=== PATIENT | male | born 1950 | race Caucasian/White ===

== ENCOUNTER → 2016-11-05 | Outpatient (CLI) | payer OTHER ==
--- NOTE | 2016-11-05 17:19 | DIAGNOSTIC IMAGING REPORT ---
PROCEDURE: XR WRIST 1 OR 2 VIEWS - RIGHT INDICATION: Follow-up right wrist fracture. TECHNIQUE: AP and lateral views. COMPARISON: Right wrist x-ray [facility] 04/21/2016 and 03/24/2016. FINDINGS: Smooth deformity of the distal radius consistent with an old healed fracture with subchondral degenerative cystic change. There is mild positive ulnar variance which may result in impaction injuries. IMPRESSION: 1. Healed right distal radius fracture 2. Positive ulnar variance which may result in impaction injuries
--- NOTE | 2016-11-05 17:19 | DIAGNOSTIC IMAGING REPORT ---
PROCEDURE: XR WRIST 1 OR 2 VIEWS - RIGHT INDICATION: Follow-up right wrist fracture. TECHNIQUE: AP and lateral views. COMPARISON: Right wrist x-ray [facility] 04/21/2016 and 03/24/2016. FINDINGS: Smooth deformity of the distal radius consistent with an old healed fracture with subchondral degenerative cystic change. There is mild positive ulnar variance which may result in impaction injuries. IMPRESSION: 1. Healed right distal radius fracture 2. Positive ulnar variance which may result in impaction injuries
== END ==
LOC: XR SRH 16:27
DX: S52.501D Unspecified fracture of the lower end of right radius, subsequent encounter for closed fracture with routine healing (principal)

== ENCOUNTER 2016-11-10 02:51 | Emergency (ER) | payer OTHER ==
--- NOTE | 2016-11-10 05:05 | ED ORDER SUMMARY ---
..... Patient: KUMAR MUÑIZ OrderSheet [facility] VisitID: [id number] [address] [place] [address] 66y, M Registration Date/Time: 11/10/2016 ORDER SHEET Weight: 87.0 kg Allergies: No Known Drug Allergy GENERAL ORDERS: CT Abd/Pel wo Cont (left sided) Urgent (03:11/10/2016 PHutchinson DO) (Ack 3:23 Ron) (4:28 GUnger) UA-Culture if indicated Urgent (03:11/10/2016 PHutchinson DO) (Ack 3:23 Ron) (4:41 TBowen R.N.) Amylase Urgent (03:11/10/2016 PHson DO) (3:13 TBowen R.N.) Lipase Urgent (03:11/10/2016 PHutchinson DO) (3:13 TBowen R.N.) PT with INR Urgent (03:11/10/2016 PHson DO) (3:13 TBowen R.N.) Cardiac Panel Stat (03:11/10/2016 chinson DO) (3:13 TBowen R.N.) BNP Urgent (03:11/10/2016 PHutchinson DO) (3:13 TBowen R.N.) Urine Drug Screen Urgent (03:11/10/2016 PHutchinson DO) (Ack 3:23 Ron) (4:41 TBowen R.N.) Ethyl Alcohol Urgent (03:11/10/2016 PHchinson DO) (3:13 TBowen R.N.) NPO (03:11/10/2016 PHutchinson DO) (3:13 TBowen R.N.) MEDICATION ORDERS: IV FLUIDS: IV NS : initial bolus 1000 mL (1000 mL/hr), then 250 mL/hr for X4 (NOW) (03:11/10/2016 PHutchinson DO) (3:24 TBowen R.N.) Dilaudid IV 0.5 mg (may repeat x 2 prn pain) (03:08 11/10/2016 [facility]) (3:25 TBowen R.N.) Zofran IV 4 mg (NOW) (03:09 11/10/2016 [facility]) (3:24 TBowen R.N.) Toradol IV 30 mg (NOW) (03:11/10/2016 [facility]) (3:24 TBowen R.N.) ORDER SHEET NOTES: [Electronically signed by Martita Hand R.N. (05:27 11/10/2016)] [Electronically signed by Teddy Farooq DO (05:42 11/10/2016)] [Electronically locked/signed by Martita Hand R.N. (05:11/10/2016)]
--- NOTE | 2016-11-10 05:05 | ED NURSING NOTES ---
Clinical Report - Nurses [place] [address] [place] [address] 11/10/2016 2:53 [id number] TRI[facility] Triage time 03:03. Acuity: LEVEL 3. Chief Complaint: ABDOMINAL PAIN, NAUSEA and VOMITING. --03:12 Colt RManiN. 03:03 11/10/16. BP: 117/59. HR: 68. RR: 18. O2 saturation: 99%. Temp: 97.5 F. Pain level now: 03/14. --03:12 Colt R.N. Weight: 87 kg. Height/Length: 68 inches. BMI: 29.2. --03:06 Colt R.N. Medications None. --03:05 Colt RManiN. Allergies No Known Drug Allergy. --03:04 Colt RManiN. History Arrived by private vehicle. Historian: patient. Accompanied by family. ( pt states abd started yesterday, pt complains of nausea and vomiting). This started yesterday. Treatment MANAGER DEMAND: None. PAST MEDICAL HX: Immunizations: up-to-date. SOCIAL HX: Heavy tobacco smoker- less than 1 pack per day. No alcohol use or drug use. No recent travel. No infectious disease exposure. No known contact with a sick individual. SELF HARM ASSESSMENT: A self harm assessment was performed. The patient answered "no" to the question "Have you recently felt down, depressed, or hopeless?", "Have you noticed less interest or pleasure in doing things?", "Do you have thoughts of harming or killing yourself?", "Are you here because you tried to hurt yourself?", "Have you ever tried to hurt yourself before today?", "Have you recently had thoughts about harming or killing others?" and "Do you have any dangerous items in your possession?". FALL RISK ASSESSMENT: Fall risk assessment completed. No fall risk identified. NUTRITIONAL RISK ASSESSMENT: The nutritional risk assessment revealed no deficiencies. FUNCTIONAL ASSESSMENT: Functional assessment: no impairments noted. LEARNING NEEDS ASSESSMENT: The learning needs assessment revealed no barriers. SKIN INTEGRITY ASSESSMENT: Skin integrity risk assessment completed. No skin integrity risk identified. --03:12 Du Gregory PROBLEMS: Asthma. --03:05 Du Gregory COPD - Chronic Obstructive Pulmonary Disease. --03: Du Gregory ADDITIONAL SURGERIES: Pelvis. Shoulder Surgery. --03:04 Du Gregory Interventions ID band on patient. To treatment room. --03:12 Du Gregory PHYSICAL ASSESSMENT Ambulatory to room. GENERAL / NEURO / PSYCH: Alert. Oriented X 4. Appears in no acute distress. HEENT: Mucous membranes are pink. RESPIRATORY: Respirations not labored. Breath sounds within normal limits. CVS: Normal sinus rhythm noted. Capillary refill less than 2 seconds. GI / : Abdomen soft. Guarding present. Bowel sounds within normal limits. SKIN: Skin is warm and dry. --03: Du Gregory NURSING PROGRESS NOTES Patient gowned. Two patient identifiers checked. Call light placed in reach. Side rails up x 2. Bed placed in lowest position. Brakes of bed on. --: Du Gregory 03:11/10/2016 Site #1 started via IV in the left antecubital space with an 20g angiocath, with aseptic technique and good blood return; one attempt. Blood drawn: rainbow set. Labeled in the presence of the patient and sent to the lab. Saline lock flushed with saline. --: Du Gregory 03:11/10/2016 Started bag #1 1000 mL IV Fluids IV NS (Saline); at 1000 mL/hr over 1 hour(s) via site #1 via dial-a-flow. Allergies verified and confirmed 5 rights. IV patency established. IV site checked: no pain, redness, or swelling. IV flushed thoroughly pre- and post-medication administration. --:24 Du Gregory 03:24 11/10/2016 Zofran (Ondansetron HCl) IVP 4 mg given over 1 minute(s) via site #1. Allergies verified and confirmed 5 rights. IV patency established. IV site checked: no pain, redness, or swelling. IV flushed thoroughly pre- and post-medication administration. IVP given by RN. --03:24 uD Gregory 03:24 11/10/2016 Toradol IVP 30 mg given over 1 minute(s) via site #1. Allergies verified and confirmed 5 rights. IV patency established. IV site checked: no pain, redness, or swelling. IV flushed thoroughly pre- and post-medication administration. IVP given by RN. --03:24 Du Gregory 03:25 11/10/2016 Dilaudid (HYDROmorphone HCl PF) IVP 0.5 mg given over 1 minute(s) via site #1. Allergies verified, confirmed 5 rights and sedative warning given to the patient and patient's family. IV patency established. IV site checked: no pain, redness, or swelling. IV flushed thoroughly pre- and post-medication administration. IVP given by RN. --03: Du Gregory Reassessment after medication administered. He is sleeping. --04:00 Du Gregory 04:00 11/10/2016 IV Fluids IV NS Discontinued: bag #1 completed. Total amount infused: 1000 mL. IV patency established. IV site checked: no pain, redness, or swelling. IV flushed thoroughly. --04:00 Du Gregory 04:01 11/10/2016 Started bag #2 1000 mL IV Fluids IV NS (Saline); at 250 mL/hr over 4 hour(s) via site #1 via IV pump. Allergies verified and confirmed 5 rights. IV patency established. IV site checked: no pain, redness, or swelling. IV flushed thoroughly pre- and post-medication administration. --04:01 Du Gregory 05:27 11/10/2016 IV Fluids IV NS Discontinued: bag #2 STOPPED upon discharge. Total amount infused: 500 mL. IV patency established. IV site checked: no pain, redness, or swelling. IV flushed thoroughly. --05:27 Du Gregory DISPOSITION / DISCHARGE Departure time: 05:25. Condition at departure: improved. No learning barriers present. Discharge instructions provided and reviewed with the patient. Reviewed medication(s) side effects, precautions, dosing and course information. Prescription(s) given to the patient. Reviewed referral to a surgeon and primary care physician for followup. Work note given. Patient verbalized understanding. Written instructions provided in [facility]. No warning instructions, treatment instructions, diet instructions, activity restrictions or follow up contact number given. No stop smoking instructions. The patient was discharged by the physician. He was discharged home and accompanied by family. He left the Emergency Department ambulatory and via private vehicle. Family member driving. FALL RISK ASSESSMENT: Fall risk assessment completed. No fall risk identified. --05:25 Du Gregory 05:24 11/10/16. BP: 118/62. HR: 71. RR: 16. O2 saturation: 99%. Temp: deferred. Pain level now: 0/10. --05:25 Du Gregory 05:26 11/10/2016 Site #1 removed upon discharge. Catheter intact. Bandaid applied. --05:26 Du Gregory Locked/Released at 11/10/2016 5:27 by Du Gregory
--- NOTE | 2016-11-10 05:05 | ED CLINICAL REPORT ---
Clinical Report - Physicians/Mid Levels [facility] [address] [place] [address] 11/10/2016 2:53 Patient: KUMAR MUÑIZ Time Seen: 03:02. Arrived- By private vehicle. Historian- patient. HISTORY OF PRESENT ILLNESS Chief Complaint: FLANK PAIN. This started yesterday and is still present. It was gradual in onset and has been waxing/waning. At its maximum, severity described as severe. When seen in the E.D., severity described as severe. Modifying factors. Not worsened by anything. Not relieved by anything. It is described as "pain" and sharp. It is described as located in the left abdomen, left lower quadrant and left pelvis and the left flank and radiating to the left lower quadrant of the abdomen. The patient has had nausea. No vomiting or diarrhea. Similar symptoms previously: None. Recent medical care: Not recently seen/assessed. REVIEW OF SYSTEMS No constipation, black stools, hematemesis, difficulty with urination or pain with urination. No bloody stools, fever, headache, sore throat or chest pain. No difficulty breathing, cough or skin rash. The patient has had urinary frequency. The patient has had mid back pain. No pain radiating below the knee. All systems otherwise negative, except as recorded above. PAST HISTORY See nurses notes. PCP: Dr Combs. No history of peptic ulcer. No history of gallstones or bowel obstruction. Has not had urinary calculi. Mild asthma. Mild chronic obstructive pulmonary disease. Surgeries: Shoulder surgery. (Pelvic surgery). Medications: None. Allergies: No Known Drug Allergy. SOCIAL HISTORY Smoker- current status unknown. Occasional alcohol use. No drug use. Residence: [place]. ADDITIONAL NOTES The nursing notes have been reviewed. PHYSICAL EXAM Vital Signs: 11/10/2016 03:03 BP: 117/59. HR: 68. RR: 18. O2 saturation: 99%. Temp: 97.5 F. Pain level now: 9/10. Appearance: Alert. Oriented X3. Patient in moderate distress. Eyes: Eyes normal inspection. No scleral icterus or pale conjunctivae. ENT: Pharynx normal. No pharyngeal erythema or tonsillar exudate. The mucous membranes are not dry. Neck: Normal inspection. Neck supple. CVS: Normal heart rate and rhythm. Heart sounds normal. Pulses normal. Respiratory: No respiratory distress. Breath sounds normal. No decreased air movement, rales, rhonchi or wheezes. Abdomen: Soft. Mild tenderness in the left lower quadrant. No mass. Femoral pulses equal. No rebound tenderness or guarding. Back: Normal inspection. Mild CVA tenderness on the left. : Normal genitalia. Testes descended. No scrotal swelling. Skin: Skin warm and dry. Normal skin color. No rash. Normal skin turgor. Extremities: Extremities exhibit normal ROM. No calf tenderness. No lower extremity edema. Neuro: Oriented X 3. No motor deficit. LABS, X-RAYS, AND EKG Abdominal CT: 2 mm mildly obstructing stone in let UVJ. Isodense cyst or mass in Left midpole kidney. 4.8cm AAA, incompletely evaluated. Study type: abdomen and pelvis. Abdominal CT performed without contrast. The study was independently viewed by me, interpreted by the radiologist and discussed with the radiologist. Laboratory Tests: UA-Culture if indicated: (DONNA: 11/10/2016 04:40) ( MsgRcvd 11/10/2016 04:55) Final results Test Result Flag Units (Reference) URINE COLOR YELLOW URINE APPEARANCE CLEAR URINE GLUCOSE NEGATIVE (NEGATIVE) URINE BILIRUBIN NEGATIVE (NEGATIVE) URINE KETONE TRACE (NEGATIVE) URINE SPECIFIC GRAVITY 1.010 (1.010-1.030) URINE PH 6.5 (5.0-8.0) URINE PROTEIN NEGATIVE (NEGATIVE) URINE UROBILINOGEN 0.2 EU/dL (0.2-1.0) URINE NITRITE NEGATIVE (NEGATIVE) URINE BLOOD 3+ (NEGATIVE) URINE LEUK ESTERASE NEGATIVE (NEGATIVE) URINE RBC 25-50 rbc/hpf (0-1) URINE WBC 1-3 wbc/hpf (0-1) URINE EPITHELIAL CELLS RARE EPI/hpf (0-5) URINE BACTERIA TRACE (<1+) (NONE SEEN) URINE COMMENT CULT NOT INDICATED 5-10 HYALINE CASTURINE CULTURES ARE SET-UP BASED ON THE FOLLOWING CRITERIA:POSITIVE NITRITEPOSITIVE LEUKOCYTE ESTERASEGREATER THAN 10 WHITE BLOOD CELLSMODERATE (2+) OR GREATER BACTERIA CBC w Diff: (DONNA: 11/10/2016 03:10) ( [facility] 11/10/2016 03:23) Final results Test Result Flag Units (Reference) WHITE BLOOD COUNT 15.1 H K/uL (4.5-11.5) RED BLOOD COUNT 4.72 M/uL (4.50-5.90) HEMOGLOBIN 14.9 gm/dL (13.5-17.5) HEMATOCRIT 43.4 % (41.0-53.0) MEAN CELL VOLUME 92 fL (80-100) MEAN CORPUSCULAR HGB 32 pg (26-34) MEAN CORPUSCULAR HGB CONC 34 g/dL (31-37) RED CELL DISTRIBUTION WIDTH 12.8 % (11.6-14.8) PLATELET COUNT 225 K/uL (150-400) NEUTROPHIL % 84.3 H % (50-75) LYMPH % 8.7 L % (25-40) MONO % 6.3 % (3-14) EOSINOPHIL % 0.3 % (0-4) BASOPHIL % 0.4 % (0-2) PT with INR: (DONNA: 11/10/2016 03:10) ( [facility] 11/10/2016 03:29) Final results Test Result Flag Units (Reference) INR 0.8 (0.8-1.2) Low Intensity Therapy: INR 1.5-2.0 PT range 18.5-23.1Mod.Intensity Therapy: INR 2.0-3.0 PT range 23.1-31.5High Intensity Therapy: INR 2.5-3.5 PT range 27.4-35.5High Intensity Therapy 2: INR 3.0-4.0 PT range 31.5-39.3 Urine Drug Screen: (DONNA: 11/10/2016 04:40) ( [facility] 11/10/2016 05:08) Final results Test Result Flag Units (Reference) AMPHETAMINE/METHAMPHETAMINE NEGATIVE (NEGATIVE) BARBITURATE NEGATIVE (NEGATIVE) BENZODIAZEPINE NEGATIVE (NEGATIVE) CANNABINOID NEGATIVE (NEGATIVE) COCAINE NEGATIVE (NEGATIVE) ECSTASY NEGATIVE (NEGATIVE) METHADONE NEGATIVE (NEGATIVE) OPIATE POSITIVE H (NEGATIVE) The urine drug screen is a qualitative screening test fordrug overdose and abuse. All screen results should beconsidered as presumptive.Drugs screened for are as follows:BenzodiazepinesCocaineAmphetamines/MetamphetaminesTHC (Tetrahydrocannabinol)OpiatesBarbituratesEcstasyMethadonePositive results are unconfirmed. For confirmation, notifythe lab for the specimen to be sent to the reference lab.All confirmations must be performed by a differentmethodology.The ingestion of natural herbal and plant productscontaining Ephedra/Ephedra metabolites can produce in urineone or more substances capable of cross reacting withamphetamine/methamphetamine immunoassays. These testsprovide a preliminary result only. A more specificalternative chemical method must be used to obtain aconfirmed analytical result. BNP: (DONNA: 11/10/2016 03:10) ( [facility] 11/10/2016 03:50) Final results Test Result Flag Units (Reference) B-TYPE NATRIURETIC PEPTIDE 20.7 pg/ml (5-100) CHEM 13 PANEL: (DONNA: 11/10/2016 03:10) ( [facility] 11/10/2016 03:37) Final results Test Result Flag Units (Reference) GLUCOSE 128 H mg/dL (70-110) BUN 15 mg/dL (7-18) CREATININE 1.4 H mg/dL (0.6-1.3) Estimated GFR 53.72 mL/min Estimated GFR- >60 mL/min Note: Persistent reduction over 3 months in eGFR<60 mL/min/1.73 m2 defines CKD. Patients with eGFR values>=60 mL/min/1.73 m2 may also have CKD if evidence ofpersistent proteinuria. Additional information may be foundat www.kidney.org. SODIUM 144 mmol/L (136-145) POTASSIUM 4.0 mmol/L (3.5-5.1) CHLORIDE 107 mmol/L (98-107) CARBON DIOXIDE 25 mmol/L (21-32) CALCIUM 9.5 mg/dL (8.5-10.1) TOTAL PROTEIN 7.7 g/dL (6.4-8.2) ALBUMIN 3.8 g/dL (3.3-5.0) BILIRUBIN, TOTAL 0.3 mg/dL (0.0-1.0) ALKALINE PHOSPHATASE 94 U/L (46-116) AST (SGOT) 23 U/L (15-37) ALT (SGPT) 30 U/L (12-78) CPK 93 U/L (24-260) MAGNESIUM 2.1 mg/dL (1.8-2.4) LIPASE 223 U/L (73-393) AMYLASE 44 U/L (25-115) TROPONIN I <0.05 ng/mL (0.00-1.5) TROPONIN REFERENCE RANGE:<0.1 NEGATIVE0.1-1.5 INDETERMINANT>1.5 POSITIVE ETHYL ALCOHOL <3 L mg/dL (3-10) . Pulse Oximetry: 11/10/2016 03:03 O2 saturation: 99%. (FIO2 - room air). Interpretation: normal. PROGRESS AND PROCEDURES Course of Care: Normal Saline 1 liter IVPB given. Toradol 30 mg IVP given. Zofran 4 mg IVP given. Dilaudid 0.5 mg IVP given. All c/w left ureterolithiasis which he has passed. Pt has incidentally noted AAA and likely renal cyst - he is informed of the need for close out pt follow up and further work up Patient is stable. The patient's symptoms are now gone. Physical exam findings are improved. 11/10/2016 05:24 BP: 118/62. HR: 71. RR: 16. O2 saturation: 99%. Pain level now: 0/10. Patient/family counseled. Disposition: Discharged. Condition: stable and improved. CLINICAL IMPRESSION Asymptomatic abdominal aortic aneurysm. No dissection, rupture, hypotension or shock. Ureterolithiasis (single stone) in the left ureter with renal colic and hydronephrosis. No acute pyelonephritis. Kidney cyst or mass. INSTRUCTIONS Do not work for three days. Drink plenty of fluids. Do not smoke. Seek medical help to quit smoking. Warnings: Further evaluation is necessary. It is very important to follow up with a physician. SEDATIVE MEDICATION: You were given sedative medication during your visit. Do not drive or operate dangerous machinery. CONTROLLED SUBSTANCE WARNINGS. GENERAL WARNINGS: Return or contact your physician immediately if your condition worsens or changes unexpectedly, if not improving as expected, or if other problems arise. Prescription Medications: Hydrocodone/APAP 5mg / 325mg: take 1-2 orally every 6 hours as needed for pain. Dispense ten (10). No refill. Zofran (orally disintegrating tablets) 4 mg: take 1-2 orally every 8 hours as needed for nausea. Dispense five (5). No refill. Follow-up: Follow up with a urologist- as recommended by your primary care physician. Follow-up with: Singh Combs MD, [facility], [phone], [facility], [address] [place] [address] [id number] Follow up tomorrow. Follow-up with: eTddy Espinal MD, General Surgeon, , [facility], [address] [place] [address] [id number] Follow up in about two days. (Electronically signed by Teddy Farooq DO 11/10/2016 5:42)
--- NOTE | 2016-11-10 05:05 | ED NURSING NOTES ---
Clinical Report - Nurses [place] [address] [place] [address] 11/10/2016 2:53 [id number] TRI[facility] Triage time 03:03. Acuity: LEVEL 3. Chief Complaint: ABDOMINAL PAIN, NAUSEA and VOMITING. --03:12 Colt RManiN. 03:03 11/10/16. BP: 117/59. HR: 68. RR: 18. O2 saturation: 99%. Temp: 97.5 F. Pain level now: 03/14. --03:12 Colt R.N. Weight: 87 kg. Height/Length: 68 inches. BMI: 29.2. --03:06 Colt R.N. Medications None. --03:05 Colt RManiN. Allergies No Known Drug Allergy. --03:04 Colt RManiN. History Arrived by private vehicle. Historian: patient. Accompanied by family. ( pt states abd started yesterday, pt complains of nausea and vomiting). This started yesterday. Treatment LABOR RELATIONS OR PERSONNEL NEGOTIATOR: None. PAST MEDICAL HX: Immunizations: up-to-date. SOCIAL HX: Heavy tobacco smoker- less than 1 pack per day. No alcohol use or drug use. No recent travel. No infectious disease exposure. No known contact with a sick individual. SELF HARM ASSESSMENT: A self harm assessment was performed. The patient answered "no" to the question "Have you recently felt down, depressed, or hopeless?", "Have you noticed less interest or pleasure in doing things?", "Do you have thoughts of harming or killing yourself?", "Are you here because you tried to hurt yourself?", "Have you ever tried to hurt yourself before today?", "Have you recently had thoughts about harming or killing others?" and "Do you have any dangerous items in your possession?". FALL RISK ASSESSMENT: Fall risk assessment completed. No fall risk identified. NUTRITIONAL RISK ASSESSMENT: The nutritional risk assessment revealed no deficiencies. FUNCTIONAL ASSESSMENT: Functional assessment: no impairments noted. LEARNING NEEDS ASSESSMENT: The learning needs assessment revealed no barriers. SKIN INTEGRITY ASSESSMENT: Skin integrity risk assessment completed. No skin integrity risk identified. --03:12 Du Gregory PROBLEMS: Asthma. --03:05 Du Gregory COPD - Chronic Obstructive Pulmonary Disease. --03: Du Gregory ADDITIONAL SURGERIES: Pelvis. Shoulder Surgery. --03:04 Du Gregory Interventions ID band on patient. To treatment room. --03:12 Du Gregory PHYSICAL ASSESSMENT Ambulatory to room. GENERAL / NEURO / PSYCH: Alert. Oriented X 4. Appears in no acute distress. HEENT: Mucous membranes are pink. RESPIRATORY: Respirations not labored. Breath sounds within normal limits. CVS: Normal sinus rhythm noted. Capillary refill less than 2 seconds. GI / : Abdomen soft. Guarding present. Bowel sounds within normal limits. SKIN: Skin is warm and dry. --03: Du Gregory NURSING PROGRESS NOTES Patient gowned. Two patient identifiers checked. Call light placed in reach. Side rails up x 2. Bed placed in lowest position. Brakes of bed on. --: Du Gregory 03:11/10/2016 Site #1 started via IV in the left antecubital space with an 20g angiocath, with aseptic technique and good blood return; one attempt. Blood drawn: rainbow set. Labeled in the presence of the patient and sent to the lab. Saline lock flushed with saline. --: Du Gregory 03:11/10/2016 Started bag #1 1000 mL IV Fluids IV NS (Saline); at 1000 mL/hr over 1 hour(s) via site #1 via dial-a-flow. Allergies verified and confirmed 5 rights. IV patency established. IV site checked: no pain, redness, or swelling. IV flushed thoroughly pre- and post-medication administration. --:24 Du Gregory 03:24 11/10/2016 Zofran (Ondansetron HCl) IVP 4 mg given over 1 minute(s) via site #1. Allergies verified and confirmed 5 rights. IV patency established. IV site checked: no pain, redness, or swelling. IV flushed thoroughly pre- and post-medication administration. IVP given by RN. --03:24 Du Gregory 03:24 11/10/2016 Toradol IVP 30 mg given over 1 minute(s) via site #1. Allergies verified and confirmed 5 rights. IV patency established. IV site checked: no pain, redness, or swelling. IV flushed thoroughly pre- and post-medication administration. IVP given by RN. --03:24 Du Gregory 03:25 11/10/2016 Dilaudid (HYDROmorphone HCl PF) IVP 0.5 mg given over 1 minute(s) via site #1. Allergies verified, confirmed 5 rights and sedative warning given to the patient and patient's family. IV patency established. IV site checked: no pain, redness, or swelling. IV flushed thoroughly pre- and post-medication administration. IVP given by RN. --03: Du Gregory Reassessment after medication administered. He is sleeping. --04:00 Du Gregory 04:00 11/10/2016 IV Fluids IV NS Discontinued: bag #1 completed. Total amount infused: 1000 mL. IV patency established. IV site checked: no pain, redness, or swelling. IV flushed thoroughly. --04:00 Du Gregory 04:01 11/10/2016 Started bag #2 1000 mL IV Fluids IV NS (Saline); at 250 mL/hr over 4 hour(s) via site #1 via IV pump. Allergies verified and confirmed 5 rights. IV patency established. IV site checked: no pain, redness, or swelling. IV flushed thoroughly pre- and post-medication administration. --04:01 Du Gregory 05:27 11/10/2016 IV Fluids IV NS Discontinued: bag #2 STOPPED upon discharge. Total amount infused: 500 mL. IV patency established. IV site checked: no pain, redness, or swelling. IV flushed thoroughly. --05:27 Du Gregory DISPOSITION / DISCHARGE Departure time: 05:25. Condition at departure: improved. No learning barriers present. Discharge instructions provided and reviewed with the patient. Reviewed medication(s) side effects, precautions, dosing and course information. Prescription(s) given to the patient. Reviewed referral to a surgeon and primary care physician for followup. Work note given. Patient verbalized understanding. Written instructions provided in Ghanaian. No warning instructions, treatment instructions, diet instructions, activity restrictions or follow up contact number given. No stop smoking instructions. The patient was discharged by the physician. He was discharged home and accompanied by family. He left the Emergency Department ambulatory and via private vehicle. Family member driving. FALL RISK ASSESSMENT: Fall risk assessment completed. No fall risk identified. --05:25 Du Gregory 05:24 11/10/16. BP: 118/62. HR: 71. RR: 16. O2 saturation: 99%. Temp: deferred. Pain level now: 0/10. --05:25 Du Gregory 05:26 11/10/2016 Site #1 removed upon discharge. Catheter intact. Bandaid applied. --05:26 Du Gregory Locked/Released at 11/10/2016 5:27 by Du Gregory
--- NOTE | 2016-11-10 05:05 | ED ORDER SUMMARY ---
..... Patient: KUMAR MUÑIZ OrderSheet VisitID: [id number] [address] [place] [address] 66y, M Registration Date/Time: 11/10/2016 ORDER SHEET Weight: 87.0 kg Allergies: No Known Drug Allergy GENERAL ORDERS: CT Abd/Pel wo Cont (left sided) Urgent (03:11/10/2016 PHutchinson DO) (Ack 3:23 Ron) (4:28 GUnger) UA-Culture if indicated Urgent (03:11/10/2016 PHutchinson DO) (Ack 3:23 Ron) (4:41 TBowen R.N.) Amylase Urgent (03:11/10/2016 PHson DO) (3:13 TBowen R.N.) Lipase Urgent (03:11/10/2016 PHutchinson DO) (3:13 TBowen R.N.) PT with INR Urgent (03:11/10/2016 PHson DO) (3:13 TBowen R.N.) Cardiac Panel Stat (03:11/10/2016 chinson DO) (3:13 TBowen R.N.) BNP Urgent (03:11/10/2016 PHutchinson DO) (3:13 TBowen R.N.) Urine Drug Screen Urgent (03:11/10/2016 PHutchinson DO) (Ack 3:23 Ron) (4:41 TBowen R.N.) Ethyl Alcohol Urgent (03:11/10/2016 PHchinson DO) (3:13 TBowen R.N.) NPO (03:11/10/2016 PHutchinson DO) (3:13 TBowen R.N.) MEDICATION ORDERS: IV FLUIDS: IV NS : initial bolus 1000 mL (1000 mL/hr), then 250 mL/hr for X4 (NOW) (03:11/10/2016 PHutchinson DO) (3:24 TBowen R.N.) Dilaudid IV 0.5 mg (may repeat x 2 prn pain) (03:08 11/10/2016 [facility]) (3:25 TBowen R.N.) Zofran IV 4 mg (NOW) (03:09 11/10/2016 [facility]) (3:24 TBowen R.N.) Toradol IV 30 mg (NOW) (03:11/10/2016 [facility]) (3:24 TBowen R.N.) ORDER SHEET NOTES: [Electronically signed by Martita Hand R.N. (05:27 11/10/2016)] [Electronically signed by Teddy Farooq DO (05:42 11/10/2016)] [Electronically locked/signed by Martita Hand R.N. (05:11/10/2016)]
--- NOTE | 2016-11-10 05:05 | ED CLINICAL REPORT ---
Clinical Report - Physicians/Mid Levels [facility] [address] [place] [address] 11/10/2016 2:53 Patient: KUMAR MUÑIZ Time Seen: 03:02. Arrived- By private vehicle. Historian- patient. HISTORY OF PRESENT ILLNESS Chief Complaint: FLANK PAIN. This started yesterday and is still present. It was gradual in onset and has been waxing/waning. At its maximum, severity described as severe. When seen in the E.D., severity described as severe. Modifying factors. Not worsened by anything. Not relieved by anything. It is described as "pain" and sharp. It is described as located in the left abdomen, left lower quadrant and left pelvis and the left flank and radiating to the left lower quadrant of the abdomen. The patient has had nausea. No vomiting or diarrhea. Similar symptoms previously: None. Recent medical care: Not recently seen/assessed. REVIEW OF SYSTEMS No constipation, black stools, hematemesis, difficulty with urination or pain with urination. No bloody stools, fever, headache, sore throat or chest pain. No difficulty breathing, cough or skin rash. The patient has had urinary frequency. The patient has had mid back pain. No pain radiating below the knee. All systems otherwise negative, except as recorded above. PAST HISTORY See nurses notes. PCP: Dr Combs. No history of peptic ulcer. No history of gallstones or bowel obstruction. Has not had urinary calculi. Mild asthma. Mild chronic obstructive pulmonary disease. Surgeries: Shoulder surgery. (Pelvic surgery). Medications: None. Allergies: No Known Drug Allergy. SOCIAL HISTORY Smoker- current status unknown. Occasional alcohol use. No drug use. Residence: [place]. ADDITIONAL NOTES The nursing notes have been reviewed. PHYSICAL EXAM Vital Signs: 11/10/2016 03:03 BP: 117/59. HR: 68. RR: 18. O2 saturation: 99%. Temp: 97.5 F. Pain level now: 9/10. Appearance: Alert. Oriented X3. Patient in moderate distress. Eyes: Eyes normal inspection. No scleral icterus or pale conjunctivae. ENT: Pharynx normal. No pharyngeal erythema or tonsillar exudate. The mucous membranes are not dry. Neck: Normal inspection. Neck supple. CVS: Normal heart rate and rhythm. Heart sounds normal. Pulses normal. Respiratory: No respiratory distress. Breath sounds normal. No decreased air movement, rales, rhonchi or wheezes. Abdomen: Soft. Mild tenderness in the left lower quadrant. No mass. Femoral pulses equal. No rebound tenderness or guarding. Back: Normal inspection. Mild CVA tenderness on the left. : Normal genitalia. Testes descended. No scrotal swelling. Skin: Skin warm and dry. Normal skin color. No rash. Normal skin turgor. Extremities: Extremities exhibit normal ROM. No calf tenderness. No lower extremity edema. Neuro: Oriented X 3. No motor deficit. LABS, X-RAYS, AND EKG Abdominal CT: 2 mm mildly obstructing stone in let UVJ. Isodense cyst or mass in Left midpole kidney. 4.8cm AAA, incompletely evaluated. Study type: abdomen and pelvis. Abdominal CT performed without contrast. The study was independently viewed by me, interpreted by the radiologist and discussed with the radiologist. Laboratory Tests: UA-Culture if indicated: (DONNA: 11/10/2016 04:40) ( MsgRcvd 11/10/2016 04:55) Final results Test Result Flag Units (Reference) URINE COLOR YELLOW URINE APPEARANCE CLEAR URINE GLUCOSE NEGATIVE (NEGATIVE) URINE BILIRUBIN NEGATIVE (NEGATIVE) URINE KETONE TRACE (NEGATIVE) URINE SPECIFIC GRAVITY 1.010 (1.010-1.030) URINE PH 6.5 (5.0-8.0) URINE PROTEIN NEGATIVE (NEGATIVE) URINE UROBILINOGEN 0.2 EU/dL (0.2-1.0) URINE NITRITE NEGATIVE (NEGATIVE) URINE BLOOD 3+ (NEGATIVE) URINE LEUK ESTERASE NEGATIVE (NEGATIVE) URINE RBC 25-50 rbc/hpf (0-1) URINE WBC 1-3 wbc/hpf (0-1) URINE EPITHELIAL CELLS RARE EPI/hpf (0-5) URINE BACTERIA TRACE (<1+) (NONE SEEN) URINE COMMENT CULT NOT INDICATED 5-10 HYALINE CASTURINE CULTURES ARE SET-UP BASED ON THE FOLLOWING CRITERIA:POSITIVE NITRITEPOSITIVE LEUKOCYTE ESTERASEGREATER THAN 10 WHITE BLOOD CELLSMODERATE (2+) OR GREATER BACTERIA CBC w Diff: (DONNA: 11/10/2016 03:10) ( [facility] 11/10/2016 03:23) Final results Test Result Flag Units (Reference) WHITE BLOOD COUNT 15.1 H K/uL (4.5-11.5) RED BLOOD COUNT 4.72 M/uL (4.50-5.90) HEMOGLOBIN 14.9 gm/dL (13.5-17.5) HEMATOCRIT 43.4 % (41.0-53.0) MEAN CELL VOLUME 92 fL (80-100) MEAN CORPUSCULAR HGB 32 pg (26-34) MEAN CORPUSCULAR HGB CONC 34 g/dL (31-37) RED CELL DISTRIBUTION WIDTH 12.8 % (11.6-14.8) PLATELET COUNT 225 K/uL (150-400) NEUTROPHIL % 84.3 H % (50-75) LYMPH % 8.7 L % (25-40) MONO % 6.3 % (3-14) EOSINOPHIL % 0.3 % (0-4) BASOPHIL % 0.4 % (0-2) PT with INR: (DONNA: 11/10/2016 03:10) ( [facility] 11/10/2016 03:29) Final results Test Result Flag Units (Reference) INR 0.8 (0.8-1.2) Low Intensity Therapy: INR 1.5-2.0 PT range 18.5-23.1Mod.Intensity Therapy: INR 2.0-3.0 PT range 23.1-31.5High Intensity Therapy: INR 2.5-3.5 PT range 27.4-35.5High Intensity Therapy 2: INR 3.0-4.0 PT range 31.5-39.3 Urine Drug Screen: (DONNA: 11/10/2016 04:40) ( [facility] 11/10/2016 05:08) Final results Test Result Flag Units (Reference) AMPHETAMINE/METHAMPHETAMINE NEGATIVE (NEGATIVE) BARBITURATE NEGATIVE (NEGATIVE) BENZODIAZEPINE NEGATIVE (NEGATIVE) CANNABINOID NEGATIVE (NEGATIVE) COCAINE NEGATIVE (NEGATIVE) ECSTASY NEGATIVE (NEGATIVE) METHADONE NEGATIVE (NEGATIVE) OPIATE POSITIVE H (NEGATIVE) The urine drug screen is a qualitative screening test fordrug overdose and abuse. All screen results should beconsidered as presumptive.Drugs screened for are as follows:BenzodiazepinesCocaineAmphetamines/MetamphetaminesTHC (Tetrahydrocannabinol)OpiatesBarbituratesEcstasyMethadonePositive results are unconfirmed. For confirmation, notifythe lab for the specimen to be sent to the reference lab.All confirmations must be performed by a differentmethodology.The ingestion of natural herbal and plant productscontaining Ephedra/Ephedra metabolites can produce in urineone or more substances capable of cross reacting withamphetamine/methamphetamine immunoassays. These testsprovide a preliminary result only. A more specificalternative chemical method must be used to obtain aconfirmed analytical result. BNP: (DONNA: 11/10/2016 03:10) ( [facility] 11/10/2016 03:50) Final results Test Result Flag Units (Reference) B-TYPE NATRIURETIC PEPTIDE 20.7 pg/ml (5-100) CHEM 13 PANEL: (DONNA: 11/10/2016 03:10) ( [facility] [place]10[facility] 03:37) Final results Test Result Flag Units (Reference) GLUCOSE 128 H mg/dL (70-110) BUN 15 mg/dL (7-18) CREATININE 1.4 H mg/dL (0.6-1.3) Estimated GFR 53.72 mL/min Estimated GFR- >60 mL/min Note: Persistent reduction over 3 months in eGFR<60 mL/min/1.73 m2 defines CKD. Patients with eGFR values>=60 mL/min/1.73 m2 may also have CKD if evidence ofpersistent proteinuria. Additional information may be foundat www.kidney.org. SODIUM 144 mmol/L (136-145) POTASSIUM 4.0 mmol/L (3.5-5.1) CHLORIDE 107 mmol/L (98-107) CARBON DIOXIDE 25 mmol/L (21-32) CALCIUM 9.5 mg/dL (8.5-10.1) TOTAL PROTEIN 7.7 g/dL (6.4-8.2) ALBUMIN 3.8 g/dL (3.3-5.0) BILIRUBIN, TOTAL 0.3 mg/dL (0.0-1.0) ALKALINE PHOSPHATASE 94 U/L (46-116) AST (SGOT) 23 U/L (15-37) ALT (SGPT) 30 U/L (12-78) CPK 93 U/L (24-260) MAGNESIUM 2.1 mg/dL (1.8-2.4) LIPASE 223 U/L (73-393) AMYLASE 44 U/L (25-115) TROPONIN I <0.05 ng/mL (0.00-1.5) TROPONIN REFERENCE RANGE:<0.1 NEGATIVE0.1-1.5 INDETERMINANT>1.5 POSITIVE ETHYL ALCOHOL <3 L mg/dL (3-10) . Pulse Oximetry: 11/10/2016 03:03 O2 saturation: 99%. (FIO2 - room air). Interpretation: normal. PROGRESS AND PROCEDURES Course of Care: Normal Saline 1 liter IVPB given. Toradol 30 mg IVP given. Zofran 4 mg IVP given. Dilaudid 0.5 mg IVP given. All c/w left ureterolithiasis which he has passed. Pt has incidentally noted AAA and likely renal cyst - he is informed of the need for close out pt follow up and further work up Patient is stable. The patient's symptoms are now gone. Physical exam findings are improved. 11/10/2016 05:24 BP: 118/62. HR: 71. RR: 16. O2 saturation: 99%. Pain level now: 0/10. Patient/family counseled. Disposition: Discharged. Condition: stable and improved. CLINICAL IMPRESSION Asymptomatic abdominal aortic aneurysm. No dissection, rupture, hypotension or shock. Ureterolithiasis (single stone) in the left ureter with renal colic and hydronephrosis. No acute pyelonephritis. Kidney cyst or mass. INSTRUCTIONS Do not work for three days. Drink plenty of fluids. Do not smoke. Seek medical help to quit smoking. Warnings: Further evaluation is necessary. It is very important to follow up with a physician. SEDATIVE MEDICATION: You were given sedative medication during your visit. Do not drive or operate dangerous machinery. CONTROLLED SUBSTANCE WARNINGS. GENERAL WARNINGS: Return or contact your physician immediately if your condition worsens or changes unexpectedly, if not improving as expected, or if other problems arise. Prescription Medications: Hydrocodone/APAP 5mg / 325mg: take 1-2 orally every 6 hours as needed for pain. Dispense ten (10). No refill. Zofran (orally disintegrating tablets) 4 mg: take 1-2 orally every 8 hours as needed for nausea. Dispense five (5). No refill. Follow-up: Follow up with a urologist- as recommended by your primary care physician. Follow-up with: Singh Combs MD, [facility], [phone], [facility], [address] [place] [address] [id number] Follow up tomorrow. Follow-up with: Teddy Espinal MD, General Surgeon, , [facility], [address] [place] [address] [id number] Follow up in about two days. (Electronically signed by Teddy Farooq DO 11/10/2016 5:42)
--- NOTE | 2016-11-10 05:42 | ED MED RECONCILIATION SUMMARY ---
Patient: KUMAR MUÑIZ Medication Reconciliation Report [facility] VisitID: [id number] [address] [place] [address] 66y, M Registration Date/Time: 11/10/2016 Weight: 87.0 kg Height/Length: 68 in. BMI: 29.2 ALLERGIES: No Known Drug Allergy The patient's Home Medications are listed below: NONE. The source(s) of the original Home Medication information: Not obtained. The following Medications were given to the patient in the Emergency Department: IV NS IV Fluids bolus 0, then 1000 mL/hr, administered: 11/10/2016 3:24:00 AM Zofran [IVP] IVP 4 mg, administered: 11/10/2016 3:24:00 AM Toradol [IVP] IVP 30 mg, administered: 11/10/2016 3:24:00 AM Dilaudid [IVP] IVP 0.5 mg, administered: 11/10/2016 3:25:00 AM IV NS IV Fluids bolus 0, then 250 mL/hr, administered: 11/10/2016 4:01:00 AM The following Medications were prescribed to the patient: Hydrocodone/APAP 5mg / 325mg: take 1-2 orally every 6 hours as needed for pain. Dispense ten (10). No refill. -- Teddy Farooq DO Zofran (orally disintegrating tablets) 4 mg: take 1-2 orally every 8 hours as needed for nausea. Dispense five (5). No refill. -- Teddy Farooq DO
--- NOTE | 2016-11-10 05:42 | ED MAR SUMMARY ---
..... Medication Administration Record Located Within [facility] [address] [place] [address] Patient: KUMAR MUÑIZ Visit ID: [id number] 66y, M Weight: 87.0 kg Height/Length: 68 in BMI: 29.2 ALLERGIES: No Known Drug Allergy Start 03:24 11/10/2016 Gabriel Gregory., Stop 04:00 11/10/2016 Dhiraj GregoryN. Medication Administered: IV NS (SALINE), Dose: IV Fluids over 1 hour(s), Rate: 1000 mL/hr, Dispensed: 1000 mL bag, Site: #1 left AC. Medication Ordered: IV NS : initial bolus 1000 mL (1000 mL/hr), then 250 mL/hr for X4 (NOW). Given 03:11/10/2016 Gabriel Gregory. Medication Administered: ZOFRAN [IVP] (ONDANSETRON HCL), Dose: 4 mg IVP over 1 minute(s), Site: #1 left AC. Medication Ordered: Zofran IV 4 mg (NOW). Given 03:11/10/2016 Dhiraj GregoryN. Medication Administered: TORADOL [IVP], Dose: 30 mg IVP over 1 minute(s), Site: #1 left AC. Medication Ordered: Toradol IV 30 mg (NOW). Given 03:25 11/10/2016 hDiraj GregoryN. Medication Administered: DILAUDID [IVP] (HYDROMORPHONE HCL PF), Dose: 0.5 mg IVP over 1 minute(s), Site: #1 left AC. Medication Ordered: Dilaudid IV 0.5 mg (may repeat x 2 prn pain). Start 04:01 11/10/2016 Gabriel Gregory., Stop 05:27 11/10/2016 Dhiraj GregoryN. Medication Administered: IV NS (SALINE), Dose: IV Fluids over 4 hour(s), Rate: 250 mL/hr, Dispensed: 1000 mL bag, Site: #1 left AC. Medication Ordered: IV NS : initial bolus 1000 mL (1000 mL/hr), then 250 mL/hr for X4 (NOW).
--- NOTE | 2016-11-10 05:42 | ED DISCHARGE INSTRUCTIONS ---
Patient: KUMAR MUÑIZ General Instructions [facility] VisitID: [id number] [place] [address] 66y, M Registration Date/Time: 11/10/2016 Asymptomatic abdominal aortic aneurysm. No dissection, rupture, hypotension or shock. Ureterolithiasis (single stone) in the left ureter with renal colic and hydronephrosis. No acute pyelonephritis. Kidney cyst or mass. INSTRUCTIONS Do not work for three days. Drink plenty of fluids. Do not smoke. Seek medical help to quit smoking. Warnings: Further evaluation is necessary. It is very important to follow up with a physician. SEDATIVE MEDICATION: You were given sedative medication during your visit. Do not drive or operate dangerous machinery. CONTROLLED SUBSTANCE WARNINGS. GENERAL WARNINGS: Return or contact your physician immediately if your condition worsens or changes unexpectedly, if not improving as expected, or if other problems arise. Prescription Medications: Hydrocodone/APAP 5mg / 325mg: take 1-2 orally every 6 hours as needed for pain. Dispense ten (10). No refill. Zofran (orally disintegrating tablets) 4 mg: take 1-2 orally every 8 hours as needed for nausea. Dispense five (5). No refill. Follow-up: Follow up with a urologist- as recommended by your primary care physician. Follow-up with: Singh Combs MD, [facility], [phone], [facility], [address] [place] [address] [address] [address] Follow up tomorrow. Follow-up with: Teddy Espinal MD, General Surgeon, , [facility], [address] [facility] [address], [address] Follow up in about two days. ADDITIONAL INFORMATION Abdominal Aortic Aneurysm (Stable) The aorta is the bodys main artery that carries oxygen-rich blood from the heart. It travels from the heart down to the lower abdomen, where it divides into smaller blood vessels. Certain conditions such as hypertension (high blood pressure), atherosclerosis (hardening of the arteries) and obesity, and certain lifestyles such as smoking and using stimulant drugs (cocaine and amphetamines) can weaken the wall of the aorta. An aneurysm can form in the weakened aortic wall. This appears as a small bulge in the wall of the aorta, which can slowly expand. Because the bulging area is stretched thinner than the normal aortic wall, it can rupture. A rupture of the aorta causes massive internal bleeding and . Most aortic aneurysms do not cause any symptoms until they begin to expand rapidly or rupture. Therefore, most aneurysms are discovered on exams or tests done for other reasons (like an X-ray, ultrasound or CT scan). An expanding aneurysm causes symptoms of abdomen, back, flank or groin pain, which may come and go at first, or become constant. In the case of a ruptured aneurysm, there is sudden abdominal, back or groin pain, followed by weakness, dizziness and loss of consciousness as blood pressure drops and a shock state occurs. This is a fatal condition unless immediate surgery is performed. Small aneurysms rarely rupture and can be safely treated with medicines to lower blood pressure and reduce stress on the aortic wall. Routine ultrasound or CT scans can determine if the aneurysm is growing. Larger aneurysms will require surgery. Surgical treatment involves removing the section of aorta with the aneurysm and replacing it with an aortic graft (artificial blood vessel). A newer alternative to surgery, which can be used in certain cases, involves the placement of a stent (tubular wire mesh) inside the aorta to support the wall and reduce stress on the aneurysm. Rarely, a blood clot can form inside of an aortic aneurysm with no symptoms. A piece of the clot can break off and pass to smaller blood vessels in the intestines or legs and cause pain and loss of blood flow to that part. If a small aneurysm has been identified, which does not require surgery, you should still address any lifestyle factors that may improve your overall cardiovascular health. This includes such things as following a healthy diet, losing weight, stopping smoking, and lowering your cholesterol. Home Care Your aneurysm is small and does not require surgery; you will be followed along as an outpatient with routine ultrasound screening exams to measure the size of the aneurysm every 6 months. You may return to your usual level of activity. Follow these guidelines to improve your cardiac health: If you are overweight, begin a weight loss program. If you have hypertension, reduce your salt intake. -- Avoid high salt foods (olives, pickles, smoked meats, salted potato chips, etc.). -- Do not add salt to your food at the table. -- Use only small amounts of salt when cooking. Begin an exercise program. Discuss with your doctor what type of exercise program would be best for you. It doesn't have to be difficult. Even brisk walking for 20 minutes three times a week is a good form of exercise. Avoid medicines which contain heart stimulants. This includes many cold and sinus decongestant pills and sprays as well as diet pills. Check the warnings about hypertension on the label. Stimulants such as amphetamine or cocaine could be lethal for someone with hypertension. Never take these. Limit your caffeine intake or switch to caffeine-free products. Stop smoking. If you are a long-time smoker, this can be hard. Enroll in a stop-smoking program to improve your chance of success. Learning how to handle stress better is an important part of any program to lower blood pressure. Learn about relaxation methods such as meditation, yoga or biofeedback. If medicines were prescribed for hypertension, take them exactly as directed. Missing doses may cause your blood pressure get out of control. Consider buying an automatic blood pressure machine (available at most pharmacies). Use this to monitor your blood pressure at home and report the results to your doctor. Follow Up: Regular visits to your own physician for blood pressure checks and periodic ultrasounds of the aorta are an important part of your care. Make a follow-up appointment with your doctor, or as directed by our staff. Get Prompt Medical Attention if any of the following occur: -- Sudden severe abdominal, back, flank or groin pain -- Blood in your stools -- Chest pain or shortness of breath -- Generalized weakness, dizziness or fainting -- Local weakness, numbness, pain or coolness of one leg Kidney Stone (W/ Colic) The sharp cramping pain and nausea/vomiting that you have is due to a small stone which has formed in the kidney and is now passing down a narrow tube (ureter) on its way to your bladder. Once it reaches your bladder, the pain will stop. The stone may pass in your urine stream in one piece. [The size may be 1/16" to 1/4" (1-6mm)]. Or, the stone may also break up into maria ines fragments which you may not even notice. Once you have had a kidney stone, you are at risk for developing another one in the future. Home Care: Drink plenty of fluids (at least 8 to 10 glasses of water a day). Most stones will pass on their own, but may take from a few hours to a few days. Sometimes the stone is too large to pass by itself and special methods will have to be used to remove the stone. Each time you urinate, do so in a jar. Pour the urine from the jar through the strainer and into the toilet. Continue doing this until 24 hours after your pain stops. By then, if there was a kidney stone, it should pass from your bladder. Some stones dissolve into sand-like particles and pass right through the strainer. In that case, you wont ever see a stone. Save any stone that you find in the strainer and bring it to your doctor for analysis. It may be possible to prevent certain types of stones from forming. Therefore, it is important to know what kind of stone you have. Try to stay as active as possible since this will help the stone pass. Do not stay in bed unless your pain prevents you from getting up. You may notice a red, pink or brown color to your urine. This is normal while passing a kidney stone. Follow Up with your doctor or return to this facility if the pain lasts more than 48 hours. Get Prompt Medical Attention if any of the following occur: Pain that is not controlled by the medicine given Repeated vomiting or unable to keep down fluids Weakness, dizziness or fainting Fever of 100.4F (38C) or higher, or as directed by your healthcare provider Passage of solid red or brown urine (can't see through it) or urine with lots of blood clots Unable to pass urine for 8 hours and increasing bladder pressure How To Quit Smoking Smoking is one of the hardest habits to break. About half of all those who have ever smoked have been able to quit, and most of those (about 70%) who still smoke want to quit. Here are some of the best ways to stop smoking. Keep Trying: It takes most smokers about 8 tries before they are finally able to fully quit. So, the more often you try and fail, the better your chance of quitting the next time! So, don't give up! Go Cold [place]: Most ex-smokers quit cold turkey. Trying to cut back gradually doesn't seem to work as well, perhaps because it continues the smoking habit. Also, it is possible to fool yourself by inhaling more while smoking fewer cigarettes. This results in the same amount of nicotine in your body! Get Support: Support programs can make an important difference, especially for the heavy smoker. These groups offer lectures, methods to change your behavior and peer support. Call the free national Quitline for more information. 900-OQLS-RXO (640-820-4390). Low-cost or free programs are offered by many hospitals, local chapters of the [place] [employer] (973-364-5564) and the [place] [employer] (594-228-5737). Support at home is important too. Non-smokers can help by offering praise and encouragement. If the smoker fails to quit, encourage them to try again! Yutj-Gir-Tkzslha Medicines: For those who can't quit on their own, Nicotine Replacement Therapy (NRT) may make quitting much easier. Certain aids such as the nicotine patch, gum and lozenge are available without a prescription. However, it is best to use these under the guidance of your doctor. The skin patch provides a steady supply of nicotine to the body. Nicotine gum and lozenge gives temporary bursts of low levels of nicotine. Both methods take the edge off the craving for cigarettes. WARNING: If you feel symptoms of nicotine overdose, such as nausea, vomiting, dizziness, weakness, or fast heartbeat, stop using these and see your doctor. Prescription Medicines: After evaluating your smoking patterns and prior attempts at quitting, your doctor may offer a prescription medicine such as bupropion (Zyban, Wellbutrin), varenicline (Chantix, Champix), a niocotine inhaler or nasal spray. Each has its unique advantage and side effects which your doctor can review with you. Health Benefits Of Quitting: The benefits of quitting start right away and keep improving the longer you go without smokin minutes: blood pressure and pulse return to normal 8 hours: oxygen levels return to normal 2 days: ability to smell and taste begins to improve as damaged nerves start to regrow 2-3 weeks: circulation and lung function improves 1-9 months: decreased cough, congestion and shortness of breath; less tired 1 year: risk of heart attack decreases by half 5 years: risk of lung cancer decreases by half; risk of stroke becomes the same as a non-smoker For information about how to quit smoking, visit the following links: National Cancer [employer] , Clearing the Air, Quit Smoking Today - an online booklet. http://www.smokefree.gov/pubs/clearing_the_air.pdf Smokefree.gov http://smokefree.gov/ QuitNet http://www.quitnet.com/ Hydrocodone Bitartrate, Acetaminophen Oral tablet What is this medicine? ACETAMINOPHEN; HYDROCODONE (a set a WILD pancho fen; rivera droe KOE done) is a pain reliever. It is used to treat mild to moderate pain. How should I use this medicine? Take this medicine by mouth. Swallow it with a full glass of water. Follow the directions on the prescription label. If the medicine upsets your stomach, take the medicine with food or milk. Do not take more than you are told to take. Talk to your manager print regarding the use of this medicine in children. This medicine is not approved for use in children. What side effects may I notice from receiving this medicine? Side effects that you should report to your doctor or health interior plant caretaker as soon as possible: allergic reactions like skin rash, itching or hives, swelling of the face, lips, or tongue breathing problems confusion feeling faint or lightheaded, falls stomach pain yellowing of the eyes or skin Side effects that usually do not require medical attention (report to your doctor or health interior plant caretaker if they continue or are bothersome): nausea, vomiting stomach upset What may interact with this medicine? alcohol antihistamines isoniazid medicines for depression, anxiety, or psychotic disturbances medicines for sleep muscle relaxants naltrexone narcotic medicines (opiates) for pain phenobarbital ritonavir tramadol What if I miss a dose? If you miss a dose, take it as soon as you can. If it is almost time for your next dose, take only that dose. Do not take double or extra doses. Where should I keep my medicine? Keep out of the reach of children. This medicine can be abused. Keep your medicine in a safe place to protect it from theft. Do not share this medicine with anyone. Selling or giving away this medicine is dangerous and against the law. Store at room temperature between 15 and 30 degrees C (59 and 86 degrees F). Protect from light. Keep container tightly closed. Throw away any unused medicine after the expiration date. Discard unused medicine and used packaging carefully. Pets and children can be harmed if they find used or lost packages. What should I tell my health care provider before I take this medicine? They need to know if you have any of these conditions: brain tumor Crohn's disease, inflammatory bowel disease, or ulcerative colitis drink more than 3 alcohol-containing drinks per day drug abuse or addiction head injury heart or circulation problems kidney disease or problems going to the bathroom liver disease lung disease, asthma, or breathing problems an unusual or allergic reaction to acetaminophen, hydrocodone, other opioid analgesics, other medicines, foods, dyes, or preservatives or trying to get breast-feeding What should I watch for while using this medicine? Tell your doctor or health interior plant caretaker if your pain does not go away, if it gets worse, or if you have new or a different type of pain. You may develop tolerance to the medicine. Tolerance means that you will need a higher dose of the medicine for pain relief. Tolerance is normal and is expected if you take the medicine for a long time. Do not suddenly stop taking your medicine because you may develop a severe reaction. Your body becomes used to the medicine. This does NOT mean you are addicted. Addiction is a behavior related to getting and using a drug for a non-medical reason. If you have pain, you have a medical reason to take pain medicine. Your doctor will tell you how much medicine to take. If your doctor wants you to stop the medicine, the dose will be slowly lowered over time to avoid any side effects. You may get drowsy or dizzy when you first start taking the medicine or change doses. Do not drive, use machinery, or do anything that may be dangerous until you know how the medicine affects you. Stand or sit up slowly. There are different types of narcotic medicines (opiates) for pain. If you take more than one type at the same time, you may have more side effects. Give your health care provider a list of all medicines you use. Your doctor will tell you how much medicine to take. Do not take more medicine than directed. Call emergency for help if you have problems breathing. The medicine will cause constipation. Try to have a bowel movement at least every 2 to 3 days. If you do not have a bowel movement for 3 days, call your doctor or health interior plant caretaker. Too much acetaminophen can be very dangerous. Do not take Tylenol (acetaminophen) or medicines that contain acetaminophen with this medicine. Many non-prescription medicines contain acetaminophen. Always read the labels carefully. Ondansetron Oral disintegrating tablet What is this medicine? ONDANSETRON (on EDWINA se marco antonio) is used to treat nausea and vomiting caused by chemotherapy. It is also used to prevent or treat nausea and vomiting after surgery. How should I use this medicine? These tablets are made to dissolve in the mouth. Do not try to push the tablet through the foil backing. With dry hands, peel away the foil backing and gently remove the tablet. Place the tablet in the mouth and allow it to dissolve, then swallow. While you may take these tablets with water, it is not necessary to do so. Talk to your manager print regarding the use of this medicine in children. Special care may be needed. What side effects may I notice from receiving this medicine? Side effects that you should report to your doctor or health interior plant caretaker as soon as possible: allergic reactions like skin rash, itching or hives, swelling of the face, lips, or tongue breathing problems dizziness fast or irregular heartbeat feeling faint or lightheaded, falls fever and chills swelling of the hands and feet tightness in the chest Side effects that usually do not require medical attention (report to your doctor or health interior plant caretaker if they continue or are bothersome): constipation or diarrhea headache What may interact with this medicine? Do not take this medicine with any of the following medications: -apomorphine -cisapride -dofetilide -dronedarone -pimozide -thioridazine -ziprasidone This medicine may also interact with the following medications: -carbamazepine -phenytoin -rifampicin -tramadol -other medicines that prolong the QT interval (cause an abnormal heart rhythm) What if I miss a dose? If you miss a dose, take it as soon as you can. If it is almost time for your next dose, take only that dose. Do not take double or extra doses. Where should I keep my medicine? Keep out of the reach of children. Store between 2 and 30 degrees C (36 and 86 degrees F). Throw away any unused medicine after the expiration date. What should I tell my health care provider before I take this medicine? They need to know if you have any of these conditions: heart disease history of irregular heartbeat liver disease low levels of magnesium or potassium in the blood an unusual or allergic reaction to ondansetron, granisetron, other medicines, foods, dyes, or preservatives or trying to get breast-feeding What should I watch for while using this medicine? Check with your doctor or health interior plant caretaker as soon as you can if you have any sign of an allergic reaction. You have been given the following additional information: Abdominal Aortic Aneurysm (Stable) Kidney Stone W/ Colic Smoking Cessation Hydrocodone Bitartrate, Acetaminophen Oral tablet Ondansetron Oral disintegrating tablet Do not work for three days. (Electronically signed by Teddy Farooq DO 11/10/2016 5:42)
--- NOTE | 2016-11-10 05:42 | ED MAR SUMMARY ---
..... Medication Administration Record [facility] [address] [place] [address] Patient: KUMAR MUÑIZ Visit ID: [id number] 66y, M Weight: 87.0 kg Height/Length: 68 in BMI: 29.2 ALLERGIES: No Known Drug Allergy Start 03:24 11/10/2016 Gabriel Gregory., Stop 04:00 11/10/2016 Dhiraj GregoryN. Medication Administered: IV NS (SALINE), Dose: IV Fluids over 1 hour(s), Rate: 1000 mL/hr, Dispensed: 1000 mL bag, Site: #1 left AC. Medication Ordered: IV NS : initial bolus 1000 mL (1000 mL/hr), then 250 mL/hr for X4 (NOW). Given 03:11/10/2016 Gabriel Gregory. Medication Administered: ZOFRAN [IVP] (ONDANSETRON HCL), Dose: 4 mg IVP over 1 minute(s), Site: #1 left AC. Medication Ordered: Zofran IV 4 mg (NOW). Given 03:11/10/2016 Dhiraj GregoryN. Medication Administered: TORADOL [IVP], Dose: 30 mg IVP over 1 minute(s), Site: #1 left AC. Medication Ordered: Toradol IV 30 mg (NOW). Given 03:25 11/10/2016 Dhiraj GregoryN. Medication Administered: DILAUDID [IVP] (HYDROMORPHONE HCL PF), Dose: 0.5 mg IVP over 1 minute(s), Site: #1 left AC. Medication Ordered: Dilaudid IV 0.5 mg (may repeat x 2 prn pain). Start 04:01 11/10/2016 Gabriel Gregory., Stop 05:27 11/10/2016 Dhiraj GregoryN. Medication Administered: IV NS (SALINE), Dose: IV Fluids over 4 hour(s), Rate: 250 mL/hr, Dispensed: 1000 mL bag, Site: #1 left AC. Medication Ordered: IV NS : initial bolus 1000 mL (1000 mL/hr), then 250 mL/hr for X4 (NOW).
--- NOTE | 2016-11-10 05:42 | ED MED RECONCILIATION SUMMARY ---
Patient: KUMAR MUÑIZ Medication Reconciliation Report [facility] VisitID: [id number] [address] [place] [address] 66y, M Registration Date/Time: 11/10/2016 Weight: 87.0 kg Height/Length: 68 in. BMI: 29.2 ALLERGIES: No Known Drug Allergy The patient's Home Medications are listed below: NONE. The source(s) of the original Home Medication information: Not obtained. The following Medications were given to the patient in the Emergency Department: IV NS IV Fluids bolus 0, then 1000 mL/hr, administered: 11/10/2016 3:24:00 AM Zofran [IVP] IVP 4 mg, administered: 11/10/2016 3:24:00 AM Toradol [IVP] IVP 30 mg, administered: 11/10/2016 3:24:00 AM Dilaudid [IVP] IVP 0.5 mg, administered: 11/10/2016 3:25:00 AM IV NS IV Fluids bolus 0, then 250 mL/hr, administered: 11/10/2016 4:01:00 AM The following Medications were prescribed to the patient: Hydrocodone/APAP 5mg / 325mg: take 1-2 orally every 6 hours as needed for pain. Dispense ten (10). No refill. -- Teddy Farooq DO Zofran (orally disintegrating tablets) 4 mg: take 1-2 orally every 8 hours as needed for nausea. Dispense five (5). No refill. -- Teddy Farooq DO
--- NOTE | 2016-11-10 12:12 | DIAGNOSTIC IMAGING REPORT ---
PROCEDURE: CT ABDOMEN/PELVIS W/O CONTRAST INDICATION: Left flank pain. TECHNIQUE: Noncontrast axial images with sagittal and coronal reformations. Preliminary report provided by Misti Mcwilliams MD COMPARISON: None. FINDINGS: ABDOMEN: There is mild left hydronephrosis and hydroureter secondary to a 2 mm calculus which has passed into the urinary bladder. This is associated with mild perinephric edema. There are small low density areas in the left kidney which most likely represent cysts. Right kidney and ureter are within normal limits with probable 10 mm lower pole cyst. There is a 4.9 x 4.8 x 6.0 cm (longitudinal) lower abdominal aortic aneurysm with mural thrombus. Borderline spleen size (13.5 cm). Gallbladder, liver, pancreas, and aorta are normal. Bowel pattern is normal, including appendix. Mild to moderate degenerative change of the lumbar spine. PELVIS: Moderate enlargement prostate (5.3 cm). Mild sigmoid diverticulosis. Pelvic structures are otherwise normal. IMPRESSION: 1. Mild left hydronephrosis and hydroureter secondary to a 2 mm calculus which has passed into the urinary bladder. 2. Bilateral low density areas in the kidneys are most compatible with cysts (subtle lesions not completely excluded without contrast or ultrasound confirmation). 3. Borderline splenic size (13.5 cm). 4. There is a 4.9 x 4.8 cm lower abdominal aortic aneurysm with mural thrombus. 5. Moderate enlargement prostate (5.3 cm). 6. Mild sigmoid diverticulosis. 7. Findings discussed with Dr. Farooq. 8. Findings called to Dr. Combs (as requested). All CT scans at this facility use dose modulation, iterative reconstruction, and/or weight-based dosing when appropriate to reduce radiation dose to as low as reasonably achievable.
== END 2016-11-10 05:05 | disposition home or self-care (01) ==
LOC: ED SRH 02:51
DX: N13.2 Hydronephrosis with renal and ureteral calculous obstruction (principal); N28.1 Cyst of kidney, acquired; I71.4 Abdominal aortic aneurysm, without rupture; F17.210 Nicotine dependence, cigarettes, uncomplicated
CPT/HCPCS: 90004; 90100; 90616; 91320; 92010; 92235; 92530; 92610; 92720; 92760; 92761; 92762; 92763; 92764; 92765; 92766; 92767; 94060; 95059